=== PATIENT | female | born 1960 | race Caucasian/White ===

== ENCOUNTER 2021-04-09 13:54 | Emergency (ER) | payer OTHER ==
[~2021-04-09] VITALS: Ht 162.6 cm; Wt 98.0 kg
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
[2021-04-09] MEDS ORDERED: ACETAMINOPHEN ES 500 MG TABLET ONE (14:42)
[2021-04-09] MEDS ORDERED: CYCLOBENZAPRINE 10 MG TABLET ONE (14:43)
[2021-04-09] MEDS ORDERED: ACETAMINOPHEN ES 500 MG TABLET PO ONE (15:00)
[2021-04-09] MEDS ORDERED: CYCLOBENZAPRINE 10 MG TABLET PO ONE (15:00)
[2021-04-09] MEDS ORDERED: CYCL5TAB PO (15:31)
[2021-04-09 15:56] VITALS: BP 144/100
--- NOTE | 2021-04-09 15:56 | NUR ---
Patient discharged to home in stable condition. Written and verbal after care instructions given. Patient verbalizes understanding of instruction.
== END 2021-04-09 15:56 | disposition home or self-care (01) ==
LOC: ER 14:55
DX: S13.4XXA Sprain of ligaments of cervical spine, initial encounter (principal); E11.9 Type 2 diabetes mellitus without complications; V49.59XA Passenger injured in collision with other motor vehicles in traffic accident, initial encounter; Y93.89 Activity, other specified; Y92.413 State road as the place of occurrence of the external cause; Y99.8 Other external cause status